=== PATIENT | female | born 1970 ===

== ENCOUNTER 2025-02-06 06:31 | Day surgery (SDC) | payer BC, SELFPAY | END 2025-02-06 13:51 | disposition home or self-care (01) | LOC: GI 06:31 | PROVIDERS: ATTENDING PHYSICIAN Internal Medicine Gastroenterology | DX: Z12.11 Encounter for screening for malignant neoplasm of colon (principal); D12.2 Benign neoplasm of ascending colon; K64.8 Other hemorrhoids; Z83.719 Family history of colon polyps, unspecified | CPT/HCPCS: 45380; 88305 ==